=== PATIENT | female | born 1975 ===

== ENCOUNTER 2018-07-24 05:20 | Day surgery (SDC) | payer OTHER ==
[~2018-07-24 05:20] MED LIST: CLONAZEPAM1 MG PO; GEMFIBROZIL600 MG PO; ZETIA10 MG PO
[2018-07-24] MEDS ORDERED: EC-NAPROSYN375 MG PO (08:42)
== END 2018-07-24 10:05 | disposition home or self-care (01) ==
LOC: CIR.AMB 05:20
DX: N84.0 Polyp of corpus uteri (principal)